=== PATIENT | female | born 1995 | race Caucasian/White ===

== ENCOUNTER 2025-03-03 00:46 | Emergency (ER) | payer BC ==
[~2025-03-03] VITALS: Ht 167.6 cm; Wt 64.0 kg
[2025-03-03 00:56] VITALS: O2SAT 100
[2025-03-03] MEDS: ACETAMINOPHEN 325MG TABLET PO ONE (03:47)
[2025-03-03] MEDS ORDERED: ACET-2708 MT (04:21)
[2025-03-03 05:24] VITALS: BP 112/64; PULSE 69; RESP 14; TEMP 36.7; O2SAT 99
== END 2025-03-03 05:28 | disposition home or self-care (01) ==
LOC: ER 00:46
DX: M25.562 Pain in left knee (principal)
CPT/HCPCS: 73562; 99283